=== PATIENT | male | born 1980 | race African-American/Black ===

== ENCOUNTER 2022-06-25 05:31 | Emergency (ER) | payer OTHER ==
[~2022-06-25] VITALS: Ht 170.2 cm; Wt 113.2 kg
[2022-06-25] MEDS ORDERED: LIDOCAINE HCL 1% 10 MG/ML 10ML VIAL IJ NR (06:45)
[2022-06-25 07:32] VITALS: BP 115/75
== END 2022-06-25 08:02 | disposition home or self-care (01) ==
LOC: ER 05:31
DX: M79.644 Pain in right finger(s) (principal)
CPT/HCPCS: 99281; J3490; Z7610